=== PATIENT | female | born 1990 ===

== ENCOUNTER 2020-04-15 20:13 | Emergency (ER) | payer OTHER ==
[~2020-04-15] VITALS: Ht 160 cm; Wt 56.2 kg
== END 2020-04-15 21:42 | disposition home or self-care (01) ==
LOC: ER 20:13
DX: R06.02 Shortness of breath (principal); F41.0 Panic disorder [episodic paroxysmal anxiety]

== ENCOUNTER 2023-02-10 09:30 | Outpatient (CLI) | payer OTHER | END 2023-02-10 09:38 | disposition home or self-care (01) | LOC: EDBD 09:30 → RX STUDY 09:30 | PROVIDERS: ATTEND Obstetrics & Gynecology Reproductive Endocrinology | DX: N93.0 Postcoital and contact bleeding (principal) ==